=== PATIENT | male | born 1950 | race Caucasian/White ===

== ENCOUNTER 2021-12-08 07:28 | Inpatient (IN) ==
--- NOTE | 2021-12-01 11:54 | Anesthesiology Consultation ---
Date of Service December 01, 2021 Assessment & Plan (1) Encounter for pre-operative examination: - COVID screening: Per assessment on 11/26: No known COVID-19 positive contacts or current COVID-19 related symptoms. Travel screen negative. Patient vaccinated. Surgeon arranging preop COVID testing. Awaiting results. - Cardiology office visit (11/18/21): "Patient is stable from cardiac perspective.. Reviewed echo.. And nuclear stress test completed here recently.. He can proceed with surgery. He is considered an intermediate risk of major cardiac events considering his preexisting comorbidities. He has hx of chronic atrial fibrillation that is rate controlled. Recommend at least 48 hrs pause on anticoagulates prior to surgery." - PCP office visit (11/25/21): Aware of upcoming surgery- "Most recent lab test noted and discussed" Chart Review Chart Review: Acceptable Risk for Surgery and Patient NOT seen in Pre Admission Testing History Surgery Operation Date: 12/08/21 07:45 Proposed Procedures p L3-S1 Decompression Fusion, Spinal Cord Monitoring - Jules Brown, Height/Weight Height: 5 ft 10 in Weight: 131.088 kg Allergies Allergy/AdvReac Type Severity Reaction Status Date / Time Penicillins Allergy Intermediate Hives Verified 11/26/21 10:26 adhesive tape Allergy Mild SENSITIVE Verified 11/26/21 10:26 SKIN Medications Home Medications Medication Instructions Recorded Confirmed Last Taken apixaban 5 mg tablet 5 mg PO BID 11/26/21 11/26/21 Unknown atorvastatin 40 mg tablet 20 mg PO HS 11/26/21 11/26/21 Unknown cholecalciferol (vitamin D3) 50 50 mcg PO QAM 11/26/21 11/26/21 Unknown mcg (2,000 unit) tablet (Vitamin D3) diltiazem HCl 300 mg 300 mg PO QAM 11/26/21 11/26/21 Unknown capsule,extended release 24 hr hydrochlorothiazide 25 mg tablet 25 mg PO QAM 11/26/21 11/26/21 Unknown multivitamin 1 tab PO QA 11/26/21 11/26/21 Unknown omeprazole 20 mg tablet,delayed 20 mg PO QAM 11/26/21 11/26/21 Unknown release sertraline 100 mg tablet 200 mg PO QAM 11/26/21 11/26/21 Unknown spironolactone 25 mg tablet 25 mg PO QAM 11/26/21 11/26/21 Unknown terazosin 5 mg capsule 5 mg PO HS 11/26/21 11/26/21 Unknown Past Medical History Medical History (Updated 12/01/21 @ 11:48 by Esmer Landa) Arthritis Atrial fibrillation REASON FOR ELIQUIS Degenerative disc disease Diabetes mellitus, type 2 DIET CONTROLLED Hearing deficit Hx of bladder cancer SURGERY Hyperlipidemia Hypertension Morbid obesity Post traumatic stress disorder Sleep apnea CPAP Past Family History Family History Mother Family history of diabetes mellitus Other No family history of adverse response to anesthesia Past Surgical History Surgical History H/O detached retina repair RT H/O gastric bypass 2002 H/O shoulder surgery RT History of bladder surgery BLADDER TUMOR REMOVED History of cholecystectomy History of colonoscopy History of cystoscopy MULTIPLE History of ear surgery INNER EAR DRUM REPAIR RT/LEFT (TITANIUM IN PLACE) History of esophagogastroduodenoscopy (EGD) History of tonsillectomy and adenoidectomy History of total hip arthroplasty RT History of total knee replacement RT/LEFT [place] teeth removed Social History Smoking Status: Former smoker tobacco type: cigarettes Do You Dip or Chew Tobacco: No Smoking End Date: 40 YEARS AGO Hx Alcohol Use: Yes Alcohol type: wine alcohol intake frequency: a few times a week substance use type: does not use Lab Results Anesthesia Preop Results Results Anesthesia Widget: WBC 8.07 K/uL (4.8-10.8) 10/26/21 Hgb 12.9 g/dL (14.0-18.0) L 10/26/21 Hct 38.2 % (42-52) L 10/26/21 Plt 195 K/uL (130-400) 10/26/21 Na 139 mmol/L (136-145) 10/26/21 K 4.0 mmol/L (3.5-5.1) 10/26/21 Cl 104 mmol/L (98-107) 10/26/21 CO2 26 mmol/L (21-32) 10/26/21 BUN 23 mg/dl (6-23) 10/26/21 Creat 1.02 mg/dl (0.6-1.4) 10/26/21 Glucose Level 236 mg/dl (70-99(Fasting)) H 10/26/21 PT 12.1 Seconds (9.0-12.0) H 10/26/21 PTT 30.5 Seconds (21.0-31.0) 10/26/21 INR 1.1 (0.9-1.1) 10/26/21 Urine Color Yellow 10/26/21 Urine Appearance Clear (Clear) 10/26/21 Urine pH 7.0 (4.5-7.5) 10/26/21 Urine Specific [place] 1.015 (1.000-1.030) 10/26/21 Urine Protein Negative (Negative) 10/26/21 Urine Glucose (UA) Negative (Negative) 10/26/21 Urine Ketones Negative (Negative) 10/26/21 Urine Blood Negative (Negative) 10/26/21 Urine Nitrite Negative (Negative) 10/26/21 Urine Bilirubin Negative (Negative) 10/26/21 Urine Urobilinogen Negative (Negative) 10/26/21 Urine Leukocyte Esterase Negative (Negative) 10/26/21 Testing Electrocardiogram Date: 10/26/21 A. fib at [address] abnormality. Chest X-Ray Date: 10/26/21 Frontal and lateral radiographs of the chest demonstrate the heart size to be at the upper limits of normal to mildly enlarged. The lungs are clear of alveolar opacities. There is no evidence for effusion bilaterally. There is no evidence for vascular congestion. There is no acute osseous pathology. IMPRESSION: No acute cardiopulmonary disease. Echocardiogram Date: 09/22/21 Mild concentric LVH. Sigmoid septum (basal septal hypertrophy most common with the elderly) noted. There is no obvious LVOT obstruction visualized. EF 55 to 60%. No regional wall motion abnormality. Severe LAD. Mild to moderate RAD. Mildly thickened mitral valve leaflets. Mild to moderate mitral annular calcification. Moderate MR. Mild to moderate TR. Moderately dilated IVC with minimal collapse with respiration. Mild to moderate pulmonary hypertension with RVSP of 43 mmHg. Stress Test Date: 08/12/21 Type: exercise Stress EKG negative. 67% MPHR. Attempts to obtain nuclear portion of stress test unsuccessful but per cardio note 11/18/21: "Last stress test (08/12/2021): Nuclear stress test was negative for stress-induced ischemia or prior myocardial infarction."
[~2021-12-08 07:28] MED LIST: ACETAMINOPHEN 500 MG TAB PO SCH; CLINDAMYCIN/D5W 600 MG/54 ML BAG IV SCH; CeleBREX 200 MG CAP PO SCH; GABAPENTIN 300 MG CAP PO SCH; LR 15ML/HR IV SCH
[2021-12-08] MEDS ORDERED: fentaNYL citrate 100 MCG/2 ML VIAL ONE (08:14)
[2021-12-08] MEDS ORDERED: ALBUMIN HUMAN 5% 12.5 GM/250 ML VIAL IV ONE (08:27)
[2021-12-08] MEDS ORDERED: ATROPINE SULFATE 0.1 MG/ML 10ML SYR IV PRN (08:27)
[2021-12-08] MEDS ORDERED: ONDANSETRON INJ 2 MG/ML 2 ML VIAL IV PRN ×2 (08:27→15:03)
[2021-12-08] MEDS ORDERED: ePHEDrine sulfate 50 MG/ML AMP IV PRN (08:27)
[2021-12-08] MEDS ORDERED: HYDROmorphone INJ 1 MG/ML SYRINGE IV PRN ×2 (08:27→15:03)
--- NOTE | 2021-12-08 08:58 | History & Physical Bridge Note ---
Date of Service December 08, 2021 History & Physical Bridge Note I have examined the patient, reviewed the History & Physical and in the interval since the performance of the History & Physical I have noted the following changes of clinical significance: no changes noted
--- NOTE | 2021-12-08 08:59 | History & Physical Report ---
Date of Service December 08, 2021 Assessment & Plan (1) Neurogenic claudication due to lumbar spinal stenosis: Plan: L3-S1 decompression and fusion History of Present Illness Chief Complaint: Back and bilateral leg pain Primary Care Provider: NO PCP This is a 71-year-old male that presents with chronic persistent back and leg symptoms after failing course of nonoperative care is here for surgical invention. Allergies Allergy/AdvReac Type Severity Reaction Status Date / Time Penicillins Allergy Intermediate Hives Verified 12/08/21 08:10 adhesive tape Allergy Mild SENSITIVE Verified 12/08/21 08:10 SKIN Home Medications Medication Instructions Recorded Confirmed Type apixaban 5 mg tablet (Eliquis) 5 mg PO BID 11/26/21 12/08/21 History atorvastatin 40 mg tablet (Lipitor) 20 mg PO HS 11/26/21 12/08/21 History cholecalciferol (vitamin D3) 50 50 mcg PO QAM 11/26/21 12/08/21 History mcg (2,000 unit) tablet (Vitamin D3) diltiazem HCl 300 mg 300 mg PO QAM 11/26/21 12/08/21 History capsule,extended release 24 hr (Cardizem CD) hydrochlorothiazide 25 mg tablet 25 mg PO QAM 11/26/21 12/08/21 History multivitamin 1 tab PO QAM 11/26/21 12/08/21 History omeprazole 20 mg tablet,delayed 20 mg PO QAM 11/26/21 12/08/21 History release sertraline 100 mg tablet (Zoloft) 200 mg PO QAM 11/26/21 12/08/21 History spironolactone 25 mg tablet 25 mg PO QAM 11/26/21 12/08/21 History (Aldactone) terazosin 5 mg capsule 5 mg PO HS 11/26/21 12/08/21 History Past Med/Surg History Medical History (Updated 12/08/21 @ 08:59 by Jules Brown DO) Arthritis Atrial fibrillation REASON FOR ELIQUIS Degenerative disc disease Diabetes mellitus, type 2 DIET CONTROLLED Hearing deficit Hx of bladder cancer SURGERY Hyperlipidemia Hypertension Morbid obesity Post traumatic stress disorder Sleep apnea CPAP Surgical History H/O detached retina repair RT H/O gastric bypass 2002 H/O shoulder surgery RT History of bladder surgery BLADDER TUMOR REMOVED History of cholecystectomy History of colonoscopy History of cystoscopy MULTIPLE History of ear surgery INNER EAR DRUM REPAIR RT/LEFT (TITANIUM IN PLACE) History of esophagogastroduodenoscopy (EGD) History of tonsillectomy and adenoidectomy History of total hip arthroplasty RT History of total knee replacement RT/LEFT [place] teeth removed Family History Mother Family history of diabetes mellitus Other No family history of adverse response to anesthesia Social History Smoking Status: Former smoker Smoking End Date: 40 YEARS AGO; Second Hand Exposure: Yes ( A CHILD); Do You Dip or Chew Tobacco: No; Hx Alcohol Use: Yes Alcohol type: wine Preferred Language: Marshallese 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
[2021-12-08] MEDS ORDERED: BUPIVACAINE 0.5 % 5 MG/1 ML MPF 30ML VIAL ONE (09:23)
[2021-12-08] MEDS ORDERED: EPINEPHrine INJ 1 MG/ML AMP ONE (09:23)
[2021-12-08] MEDS ORDERED: ceFAZolin 330 MG/ML 1 GM VIAL ONE (09:24)
[2021-12-08] MEDS ORDERED: HYDROmorphone INJ 2 MG/ML SYR/VIAL ONE (09:49)
[2021-12-08] MEDS ORDERED: NEOSTIGMINE METHYLSULFATE 1 MG/ML 10ML VIAL ONE (09:52)
[2021-12-08] MEDS ORDERED: LARYING-O-JET KIT (LTA) ONE (09:52)
[2021-12-08] MEDS ORDERED: ePHEDrine sulfate 50 MG/ML SYR ONE (09:52)
[2021-12-08] MEDS ORDERED: LIDOCAINE 2% 2 ML VIAL/AMP(20MG/ML) INFIL ONE (09:52)
[2021-12-08] MEDS ORDERED: ONDANSETRON INJ 2 MG/ML 2 ML VIAL ONE (09:52)
[2021-12-08] MEDS ORDERED: ROCURONIUM BROMIDE 10 MG/ML 5 ML VIAL IV ONE (09:52)
[2021-12-08] MEDS ORDERED: DEXAMETHASONE SOD INJ 4 MG/ML VIAL ONE (09:52)
[2021-12-08] MEDS ORDERED: GLYCOPYRROLATE 0.2 MG/ML VIAL ONE (09:52)
[2021-12-08] MEDS ORDERED: PHENYLEPHRINE 100MCG/ML 5ML SYR ONE (09:52)
[2021-12-08] MEDS ORDERED: PROPOFOL IV EMULSION 10 MG/ML 20 ML VIAL IV ONE (09:52)
[2021-12-08] MEDS ORDERED: FLOSEAL HEMOSTATIC MATRIX 10ML TOP ONE (10:30)
[2021-12-08] MEDS ORDERED: PHENYLEPHRINE HCL 10 MG/ML VIAL ONE (12:20)
[2021-12-08 12:31] LABS: iSTAT Arterial Blood Gas HCO3 24 meg/L (19-24); iSTAT Arterial Blood Gas pCO2 49 mmHg (35-46); iSTAT Arterial Blood Gas pO2 41 mmHg (80-95); iSTAT Carbon Dioxide 26 mmol/L (24-31); iSTAT Hematocrit 35 % (42-52); iSTAT Hemoglobin 11.9 g/dl (14.0-18.0); iSTAT Potassium 3.8 mmol/L (3.3-5.0); iSTAT Sodium 138 mmol/L (135-144)
[2021-12-08 12:32] LABS: Hemoglobin 12.2 g/dL (14.0-18.0)
--- NOTE | 2021-12-08 12:59 | Operative Report ---
Post Operative Report Pre & Post Diagnosis Operation Date: 12/08/21 09:15 Pre-Op Diagnosis: Spinal Stenosis, Lumbar Region Post-Op Diagnosis: Spinal Stenosis, Lumbar Region I identified the patient and participated in the time-out.: Yes Procedure Operation Date: 12/08/21 09:15 Actual Procedures #1 lumbar decompression with bilateral medial facetectomies and foraminotomies L2-L3, L3-L4, L4-5 and L5-S1. #2 posterior spinal fusion L3-S1. #3 placement posterior segmental instrumentation L3-S1. #4 interbody fusion L3-L4, L4-5 and L5-S1. #5 placement of Spira cage 12 x 26 mm at L3-L4, 13 x 26 mm at L4-5 and 14 x 26 mm at L5-S1. #6 placement locally harvested morselized autograft in the posterior gutters. #7 placement of infuse collagen sponge bone marrow master graft in the posterior gutters and I factor and interbody space. Surgeon Jules Brown, DO Clinical Staff Educator Lyudmila Borjas Estimated Blood Loss 1,700 Findings See Below The patient is 5 foot 10 inches tall weighing over 132 kg with a BMI in excess of 41. Patient's body habitus and an EBL of greater than 1700 cc created significant technical difficulty requiring her deepest retractors longus instruments in order to perform his procedure. This had well over 50% increased operative time. Specimens None Indications This is a 71-year-old male who presents with above-mentioned diagnosis of failed course of nonoperative care is here for the above-mentioned procedure. Description of Procedure Patient was met with identified informed consent obtained. Patient was then taken to the operative suite underwent ablation placed in a prone position on the Tomer table on top of the Raymundo frame. All bony prominences well-padded eyes inspected to ensure no external pressure placed upon them. This point the lumbar spine was prepped and draped in normal sterile fashion. Sharp dissection with the assistance of Bovie cartilage from down to and exposing the lamina and transverse processes of L3-L4-L5 and the sacral ala bilaterally. From caudal to cephalad fashion complete laminectomy of L5 L4 L3 and partial laminectomy of L2 was performed including bilateral medial facetectomies and foraminotomies addressing severe spinal stenosis. Pedicle screws were then placed at L3-L4-L5 and the S1 levels bilaterally with assistance of fluoroscopy and properly sized rebeca placed. Bilateral transforaminal portion left knee discectomy of L5-S1 was performed endplates curetted to subcortical being bone and a 14 x 26 mm Spira cage filled I factor tapped in position. Then proceeded to L for L5 again by way of a transforaminal approach on the left complete discectomy performed endplates curetted to subcortical bleeding bone and again a 13 x 26 mm spiral cage filled with I factor tapped in position. Lastly approached L3-[address] the transforaminal portion left complete discectomy performed endplates good for subcortically bone and a 12 x 26 mm spiral cage with I factor tapped in position. Rods then compressed locked in 5 position bilaterally. The transverse processes of L3 L4-5 and sacral ala burred to subcortical bleeding bone. Infuse collagen sponge bone mass graft locally harvested morselized autograft was placed in the posterior gutters. 15 round OLIVA drain inserted. The incision was then closed with 1 Vicryl the fascia 2-0 Vicryl subcutaneously and 4 Monocryl for final skin closure. Steri-Strip sterile dressings placed. Patient waken taken PACU stable condition. Please note spinal cord monitoring was utilized at the procedure no changes noted. Lastly Lyudmila Borjas was present out the entire surgery involved the patient positioning complex portions of the surgery and final skin closure. I attest to the content of the Intraoperative Record and any orders documented therein. Any exceptions are noted below.
--- NOTE | 2021-12-08 13:15 | Fluoroscopy Report ---
FL lumbar spine 2-3V CLINICAL HISTORY: L3-S1 DFI COMPARISON STUDY: None. FLUOROSCOPY TIME: 44.9 seconds. FLUOROSCOPIC IMAGES: 2 FINDINGS: Fluoroscopy was provided during L3-L4, L4-L5 and L5-S1 discectomies with interbody spacer p lacement. Posterior decompression is noted with bilateral pedicle screws at the L3, L4, L5 and S1 lev els with interconnecting rods. Hardware is intact. IMPRESSION: Fluoroscopy provided during L3-S1 discectomies, posterior decompression and bilateral pe dicle screw fusion. ACT 112: Negative or not required by law. Electronically signed by: Kaiden Lao M.D. 12/08/2021 1:14 PM
[2021-12-08] MEDS: fentaNYL citrate 100 MCG/2 ML VIAL IV PRN ×3 (13:26→13:43)
[2021-12-08 13:47] LABS: Hematocrit (blood only) 33.6 % (42-52); Hemoglobin 11.2 g/dL (14.0-18.0); Mean Corpuscular Hemoglobin 28.2 pg (25-34); Mean Corpuscular Volume 84.6 fL (80-100); Mean Platelet Volume 9.7 fL (7.4-10.4); Platelet Count 184 K/uL (130-400); RDW Coefficient of Variation 14.7 % (11.5-14.5); RDW Standard Deviation 45.8 fL (36.4-46.3); Red Blood Count 3.97 M/uL (4.7-6.1); White Blood Count 11.16 K/uL (4.8-10.8)
[2021-12-08 13:52] LABS: Mean Corpuscular Hgb Conc 33.3 g/dL (32-36)
--- NOTE | 2021-12-08 14:37 | Anesthesiology Progress Note ---
Date of Service December 08, 2021 Anesthesia Post Procedure Vital Signs Vital Signs: Temp Pulse Pulse Resp BP Pulse Ox 12/08/21 13:55 62 12 102/41 L 95 12/08/21 13:45 67 16 104/48 L 98 12/08/21 13:35 62 12 107/39 L 96 12/08/21 13:25 66 14 110/43 L 97 12/08/21 13:16 36.1 C L 72 16 96/47 L 97 12/08/21 08:33 36.8 C 82 18 149/70 H 96 Pain Intensity Lower Back: Pain Intensity: 4 Transfer of Care Handoff Completed per policy Notes Mental Status: alert / awake / arousable and participated in evaluation Patient Amnestic to Procedure: Yes Nausea / Vomiting: adequately controlled Pain: adequately controlled Airway Patency, RR, SpO2: stable & adequate BP & HR: stable & adequate Hydration State: stable & adequate Anesthetic Complications: no major complications apparent and Pt Satisfied with anesthetic care Notes: The patient is doing well with no complaints. He has DAVION and will be on continuous pulse oximetry. The PACU nurse will give report to the floor to ensure the patient's brings is CPAP to the floor.
[2021-12-08] MEDS ORDERED: diphenhydrAMINE Capsule 25 MG CAP PO PRN (15:03)
[2021-12-08] MEDS ORDERED: ACETAMINOPHEN 500 MG TAB PO PRN (15:03)
[2021-12-08] MEDS ORDERED: DO NOT ADMINISTER FLU VACCINE PRN (15:03)
[2021-12-08] MEDS ORDERED: SOD PHOSPHATE/SOD BIPHOSPHATE ENEMA 132 ML BTL PR PRN (15:03)
[2021-12-08] MEDS ORDERED: LORazepam 0.5 MG TAB PO PRN (15:03)
[2021-12-08] MEDS ORDERED: ACETAMINOPHEN 1,000 MG/100 ML VIAL IV PRN (15:03)
[2021-12-08] MEDS ORDERED: LORazepam 2 MG/1 ML VIAL IV PRN (15:03)
[2021-12-08] MEDS ORDERED: NALOXONE HCL 0.4 MG/1 ML VIAL/CARP IV PRN (15:03)
[2021-12-08] MEDS ORDERED: traMADol HCL 50 MG TABLET PO PRN (15:03)
[2021-12-08] MEDS ORDERED: MAGNESIUM HYDROXIDE SUSP 30 ML UDC PO PRN (15:03)
[2021-12-08] MEDS ORDERED: hydrOXYzine HCl 25 MG TAB PO PRN (15:03)
[2021-12-08] MEDS ORDERED: METOCLOPRAMIDE HCL INJ 5 MG/ML 2 ML VIAL IV PRN (15:03)
[2021-12-08] MEDS ORDERED: PROMETHAZINE HCL 12.5 MG in SODIUM CHLORIDE 0.9% 50 ML IV PRN (15:03)
[2021-12-08] MEDS ORDERED: bisacodyL 10 MG SUPP PR PRN (15:03)
[2021-12-08] MEDS ORDERED: FAMOTIDINE 20 MG TAB PO PRN (15:03)
[2021-12-08] MEDS ORDERED: ALUMINUM/MAGNESIUM SUSP 30 ML UDC PO PRN (15:03)
[2021-12-08] MEDS ORDERED: DO NOT ADMINISTER PNEUMOCOCCAL VACCINE PRN (15:03)
[2021-12-08] MEDS ORDERED: ONDANSETRON 4 MG OD TAB PO PRN (15:03)
[2021-12-08] MEDS ORDERED: HYDROmorphone INJ 0.5 MG/0.5 ML SYR IV PRN (15:03)
[2021-12-08] MEDS ORDERED: CARBOHYDRATES FOR HYPOGLYCEMIA PO PRN (15:53)
[2021-12-08] MEDS ORDERED: GLUCOSE 10 TABS/TUBE PO PRN (15:53)
[2021-12-08] MEDS ORDERED: DEXTROSE 50% 50 ML SYRINGE IV PRN (15:53)
[2021-12-08] MEDS ORDERED: GLUCAGON FOR INJ 1 MG VIAL SQ PRN (15:53)
[2021-12-08] MEDS ORDERED: GLUCOSE 40% GEL 15 GM TUBE PO PRN (15:53)
--- NOTE | 2021-12-08 15:55 | Consultation ---
Date of Consultation December 08, 2021 Assessment & Plan (1) Neurogenic claudication due to lumbar spinal stenosis: (2) Atrial fibrillation: (3) Diabetes mellitus, type 2: (4) Hypertension: (5) Sleep apnea: (6) Morbid obesity: This is a 71-year-old male who has a significant past medical history of chronic atrial fibrillation anticoagulated on Eliquis, HTN, HLD, history of bladder cancer currently in remission, diet-controlled T2DM, DAVION on CPAP, PTSD, history of gastric bypass, morbid obesity who presents for elective lumbar procedure by Dr. Brown. Neurogenic claudication due to lumbar spinal stenosis Status post L3-S1 lumbar decompression fusion, POD #[address] Brown EBL 1700 mL; OLIVA drain 95 mL Pain/wound management per orthopedics Activity and therapy as directed by orthopedics Monitor hemoglobin in setting of significant intraoperative blood loss Encourage incentive spirometry, wean oxygen as able, CPAP when sleeping Acute blood loss anemia as cause of post operative anemia Secondary to above surgery Continue to monitor OLIVA drain Postop hemoglobin 11.2 Chronic atrial fibrillation Continue diltiazem with parameters Eliquis on hold until cleared by orthopedics HTN Blood pressure on lower side HCTZ and Aldactone Parameters on diltiazem and terazosin DAVOIN Postoperative hypoxia CPAP at bedtime and with naps Postoperative ABG reveals pH of 7.3 and CO2 of 49 Likely secondary to DAVION, discussed with nurse to place patient on CPAP now until more awake Morbid obesity History of gastric bypass BMI 41.9 Encourage lifestyle diet modifications DVT prophylaxis: SCD/teds Dispo: Per primary PCP: JANICE Tee in [place] FULL CODE Pt was seen and examined in collaboration with Dr. Green, please see addendum Thank you for this consultation. We will follow the patient with you during their hospital stay. You can reach a member of the [facility] Hospitalist Team 07/02 via hospitalist role on tiger text. Supervising Physician Co-Signing Physician Notes Attending addendum: The patient was seen and examined in medical floor He is a status post L3-S1 decompression and fusion Remains stable following surgery and denies any back pain and/or numbness or tingling involving any of the extremities Denies any other symptoms On examination Lying in bed with nasal BiPAP Hemodynamically stable Chest-decreased breath sounds bilaterally otherwise clear Heart-S1, S2 irregular with a 2/6 ESM over precordium Abdomendistended, bowel sound present Extremitiestrace edema bilaterally CNSalert, awake and oriented x3 His preadmission labs, EKG and imaging studies reviewed Status post L3-S1 decompression and fusion with considerable amount of blood loss intraoperatively Has significant other medical conditions, remained stable after surgery Will monitor CBC and PRP Agree with assessment and plan as outlined above by Lay Green History of Present Illness Requesting Physician: Dr. Brown Reason for Consultation: Postop medical management Attending Physician: Jules Brown, History of Present Illness This is a 71-year-old male who has a significant past medical history of chronic atrial fibrillation anticoagulated on Eliquis, HTN, HLD, history of bladder cancer currently in remission, diet-controlled T2DM, DAVION on CPAP, PTSD, history of gastric bypass, morbid obesity who presents for elective lumbar procedure by Dr. Brown. He underwent L3 S1 lumbar decompression fusion. He did have significant blood loss of 1700 mL. He otherwise tolerated the procedure well. Postoperatively his hemoglobin was 11.2 and ABG revealed pH of 7.3 and CO2 of 49. Upon my evaluation patient was sleeping was hypoxic satting in the 80s. Oxygen was increased from 1 L to 3 L and he was satting 95%. He did not have a CPAP on at the time. His is at bedside. Currently he is very drowsy from the procedure does complain of lumbar discomfort but denies any radicular symptoms, numbness or tingling. He denies fever, chills, sweats, lightheadedness, dizziness, chest pain, shortness of breath, cough, nausea, vomiting, abdominal pain. He does have an appetite and is requesting a meal. In regards to patient's chronic atrial fibrillation he is anticoagulated on Eliquis although this has recently been on hold due to procedure. He does have history of diet-controlled T2DM. at bedside is unsure of his recent A1c. He did bring his home CPAP. Patient follows with [facility] in [place]. Patient did have an echocardiogram on 09/22/2021 which revealed severely dilated left atrium, EF 55 to 60%, no regional wall motion abnormalities, aortic valve sclerosis noted, moderate mitral regurg, moderate tricuspid regurg and trace pulmonic regurg. He also underwent exercise stress test on 08/12/2021 which was negative for inducible ischemia. Allergies Allergy/AdvReac Type Severity Reaction Status Date / Time Penicillins Allergy Intermediate Hives Verified 12/08/21 08:10 adhesive tape Allergy Mild SENSITIVE Verified 12/08/21 08:10 SKIN Home Medications Medication Instructions Recorded Confirmed Type apixaban 5 mg tablet (Eliquis) 5 mg PO BID 11/26/21 12/08/21 History atorvastatin 40 mg tablet (Lipitor) 20 mg PO HS 11/26/21 12/08/21 History cholecalciferol (vitamin D3) 50 50 mcg PO QAM 11/26/21 12/08/21 History mcg (2,000 unit) tablet (Vitamin D3) diltiazem HCl 300 mg 300 mg PO QAM 11/26/21 12/08/21 History capsule,extended release 24 hr (Cardizem CD) hydrochlorothiazide 25 mg tablet 25 mg PO QAM 11/26/21 12/08/21 History multivitamin 1 tab PO QAM 11/26/21 12/08/21 History omeprazole 20 mg tablet,delayed 20 mg PO QAM 11/26/21 12/08/21 History release sertraline 100 mg tablet (Zoloft) 200 mg PO QAM 11/26/21 12/08/21 History spironolactone 25 mg tablet 25 mg PO QAM 11/26/21 12/08/21 History (Aldactone) terazosin 5 mg capsule 5 mg PO HS 11/26/21 12/08/21 History Patient History Medical History (Updated 12/08/21 @ 15:59 by Lay Umanzor PA-C) Arthritis Atrial fibrillation REASON FOR ELIQUIS Degenerative disc disease Diabetes mellitus, type 2 DIET CONTROLLED Hearing deficit Hx of bladder cancer SURGERY Hyperlipidemia Hypertension Morbid obesity Post traumatic stress disorder Sleep apnea CPAP Surgical History H/O detached retina repair RT H/O gastric bypass 2002 H/O shoulder surgery RT History of bladder surgery BLADDER TUMOR REMOVED History of cholecystectomy History of colonoscopy History of cystoscopy MULTIPLE History of ear surgery INNER EAR DRUM REPAIR RT/LEFT (TITANIUM IN PLACE) History of esophagogastroduodenoscopy (EGD) History of tonsillectomy and adenoidectomy History of total hip arthroplasty RT History of total knee replacement RT/LEFT [place] teeth removed Family History Mother Family history of diabetes mellitus Other No family history of adverse response to anesthesia Social History Smoking Status: Former smoker Smoking End Date: 40 YEARS AGO; Second Hand Exposure: Yes ( A CHILD); Do You Dip or Chew Tobacco: No; Hx Alcohol Use: Yes Alcohol type: wine Preferred Language: Czech Manager Psychology Required: No Beliefs That Will Affect Care: None Current Living Situation: Spouse Feels Safe at Home: Yes Safety Concerns: Feels Safe At This Time Assistive Devices: Cane, CPAP, Glasses and Hearing Aid - Bilateral Review of Systems Review of Systems: All systems reviewed & are unremarkable except as noted in HPI & below Physical Exam Physical Exam: Constitutional: WD/WN, morbidly obese, drowsy but arouses to conversation, vitals as above, NAD, sitting up in bed, pleasant Head: Normocephalic, Atraumatic Eyes: PERRL, conjunctivae normal, anicteric sclerae ENMT: external ear and nose normal, oropharynx normal with dry membranes Neck: trachea midline, no thyromegaly normal visual inspection Respiratory: normal respiratory effort, lungs clear to auscultation, no wheeze, rales, rhonchi. Normal insp/exp effort, no accessory muscle use Cardiovascular: IRR/IRR, 2/6 LEIDA noted RUSB, b/l scds, no edema Vessels: no JVD or carotid bruit Chest: normal inspection of chest Abdomen: normal bowel sounds, soft, nontender, no hepatosplenomegaly Musculoskeletal: no cyanosis or clubbing, AROM x 4, lumbar dressing CDI, OLIVA with serosang drainage Skin: no rashes, warm and dry normal turgor Neurologic: PERRL, EOMI, accommodation nl, no face palsy, no dysarthria CN's II-XI intact bilaterally and moves all extremities Psychiatric: A+Ox3, euthymic affect Lymphatic: no cervical or axillary lymphadenopathy : +[place] with yellow urine Results & Data ([facility]) Vital Signs (Past 12 Hours) Vital Signs Temp Pulse Pulse Resp BP Pulse Ox 12/08/21 15:24 36.5 C 76 22 103/56 L 93 12/08/21 14:45 36.5 C 69 16 101/63 95 12/08/21 13:55 62 12 102/41 L 95 12/08/21 13:45 67 16 104/48 L 98 12/08/21 13:35 62 12 107/39 L 96 12/08/21 13:25 66 14 110/43 L 97 12/08/21 13:16 36.1 C L 72 16 96/47 L 97 12/08/21 08:33 36.8 C 82 18 149/70 H 96 Laboratory Results Short CBC 12/08/21 12/08/21 Range/Units 12:10 13:33 WBC 11.16 H (4.8-10.8) K/uL Hgb 12.2 L 11.2 L (14.0-18.0) g/dL Hct 37.0 L 33.6 L (42-52) % Plt Count 184 (130-400) K/uL Preoperative labs of 10/26/2021 revealed H&H 12.9 and 38.2, platelet 195 WBC 8.07 BUN 23, creatinine 1.02, glucose 236 Diagnostic Findings Lumbar Spine X-Ray 12/08/21 09:15 FL lumbar spine 2-3V CLINICAL HISTORY: L3-S1 DFI COMPARISON STUDY: None. FLUOROSCOPY TIME: 44.9 seconds. FLUOROSCOPIC IMAGES: 2 FINDINGS: Fluoroscopy was provided during L3-L4, L4-L5 and L5-S1 discectomies with interbody spacer placement. Posterior decompression is noted with bilateral pedicle screws at the L3, L4, L5 and S1 levels with interconnecting rods. Hardware is intact. IMPRESSION: Fluoroscopy provided during L3-S1 discectomies, posterior decompression and bilateral pedicle screw fusion. ACT 112: Negative or not required by law. Electronically signed by: Kaiden Lao M.D. 12/08/2021 1:14 PM Medications Administered Current Inpatient Medications Acetaminophen (Acetaminophen 500 Mg Tab) 1,000 mg PO PREOP [place] Stop: 12/08/21 18:00 Last Admin: 12/08/21 08:58 Dose: 1,000 mg Documented by: Acetaminophen (Acetaminophen 500 Mg Tab) 1,000 mg PO Q8H PRN PRN Reason: MILD Pain Scale 1,2,3 & Pre PT Stop: 01/07/22 15:02 Al Hydrox/Mg Hydrox/Simethicone (Aluminum/Magnesium Susp 30 Ml Udc) 30 ml PO Q6H PRN PRN Reason: Dyspepsia Stop: 01/07/22 15:02 Atorvastatin Calcium (Atorvastatin 20 Mg Tab) 20 mg PO HS [place] Stop: 01/07/22 20:59 Atropine Sulfate (Atropine Sulfate 0.1 Mg/Ml 10ml Syr) 0.5 mg IV Q1M PRN PRN Reason: PACU Use-HR<40 &/or Bradycardi Stop: 12/08/21 16:27 Bisacodyl (Bisacodyl 10 Mg Supp) 10 mg MO DAILY PRN PRN Reason: Constipation Stop: 01/07/22 15:02 Celecoxib (Celebrex 200 Mg Cap) 200 mg PO PREOP [place] Stop: 12/08/21 18:00 Last Admin: 12/08/21 08:58 Dose: 200 mg Documented by: Diltiazem HCl (Diltiazem Hcl 300 Mg Capcr) 300 mg PO QAM [facility] Stop: 01/08/22 08:59 Diphenhydramine HCl (Diphenhydramine Capsule 25 Mg Cap) 25 mg PO Q6H PRN PRN Reason: Allergic Rhinitis/Insomnia Stop: 01/07/22 15:02 Ephedrine Sulfate (Ephedrine Sulfate 50 Mg/Ml Amp) 5 mg IV Q5M PRN PRN Reason: PACU Use Only-SBP<90 mmHg Stop: 12/08/21 16:27 Famotidine (Famotidine 20 Mg Tab) 20 mg PO Q12H PRN PRN Reason: Dyspepsia Stop: 01/07/22 15:02 Fentanyl Citrate (Fentanyl Citrate 100 Mcg/2 Ml Vial) 25 mcg IV Q5M PRN PRN Reason: PACU Use Only-Pain Stop: 12/08/21 16:27 Last Admin: 12/08/21 13:43 Dose: 25 mcg Documented by: Gabapentin (Gabapentin 300 Mg Cap) 300 mg PO PREOP [place] Stop: 12/08/21 18:00 Last Admin: 12/08/21 08:59 Dose: 300 mg Documented by: Hydrochlorothiazide (Hydrochlorothiazide 25 Mg Tab) 25 mg PO QAM [place] Stop: 01/08/22 08:59 Hydromorphone HCl (Hydromorphone Inj 1 Mg/Ml Syringe) 0.25 mg IV Q5M PRN PRN Reason: PACU Use Only-Pain Stop: 12/08/21 16:27 Hydromorphone HCl (Hydromorphone Inj 0.5 Mg/0.5 Ml Syr) 0.5 mg IV Q3H PRN PRN Reason: MODERATE Pain (Scale 4,5,6) & Pre PT Stop: 12/22/21 15:02 Hydromorphone HCl (Hydromorphone Inj 1 Mg/Ml Syringe) 1 mg IV Q3H PRN PRN Reason: SEVERE Pain (Scale 7,8,9,10) Stop: 12/22/21 15:02 Hydroxyzine HCl (Hydroxyzine Hcl 25 Mg Tab) 25 mg PO Q8H PRN PRN Reason: Anxiety Stop: 01/07/22 15:02 Clindamycin Phosphate (Cleocin) 600 mg in 54 mls @ 100 mls/hr IV PREOP [place] Stop: 12/09/21 05:59 Last Infusion: 12/08/21 15:17 Dose: Infused Documented by: Lactated Ringer's (Lr) 1,000 mls @ 15 mls/hr IV .Q24H [place] Stop: 12/09/21 05:59 Last Infusion: 12/08/21 09:26 Dose: Infused Documented by: Clindamycin Phosphate 600 mg/ (Dextrose) 54 mls @ 100 mls/hr IV Q8H [place] Sodium Chloride (Nss 1000ml) 1,000 mls @ 150 mls/hr IV .Q6H40M [place] Stop: 01/07/22 15:02 Promethazine HCl 12.5 mg/ (Sodium Chloride) 50.5 mls @ 202 mls/hr IV Q6H PRN PRN Reason: Nausea &/or Vomiting Stop: 01/07/22 15:02 Acetaminophen (Ofirmev) 1,000 mg in 100 mls @ 400 mls/hr IV Q8H PRN PRN Reason: Pain Rating 1-3 & Pre PT Stop: 12/11/21 15:02 Influenza Virus Vaccine Quadrival (Do Not Administer Flu Vaccine) 1 ea N/A PRN PRN PRN Reason: Notification Stop: 01/07/22 15:02 Lorazepam (Lorazepam 0.5 Mg Tab) 0.5 mg PO Q8H PRN PRN Reason: Sedation/Anxiety Stop: 01/07/22 15:02 Lorazepam (Lorazepam 2 Mg/1 Ml Vial) 0.5 mg IV Q8H PRN PRN Reason: Sedation/Anxiety Stop: 01/07/22 15:02 Magnesium Hydroxide (Magnesium Hydroxide Susp 30 Ml Udc) 30 ml PO Q24H PRN PRN Reason: Constipation Stop: 01/07/22 15:02 Metoclopramide HCl (Metoclopramide Hcl Inj 5 Mg/Ml 2 Ml Vial) 10 mg IV Q6H PRN PRN Reason: Nausea &/or Vomiting Stop: 01/07/22 15:02 Multivitamins (Multivitamin Tab) 1 tab PO QAM [facility] Stop: 01/08/22 08:59 Naloxone HCl (Naloxone Hcl 0.4 Mg/1 Ml Vial/Carp) 0.1 mg IV Q5M PRN PRN Reason: Oversedation/Resp depression Stop: 01/07/22 15:02 Ondansetron HCl (Ondansetron Inj 2 Mg/Ml 2 Ml Vial) 4 mg IV ONCE PRN PRN Reason: PACU Use Only-Nausea/Vomiting Stop: 12/08/21 16:27 Ondansetron HCl (Ondansetron Inj 2 Mg/Ml 2 Ml Vial) 4 mg IV Q6H PRN PRN Reason: Nausea &/or Vomiting Stop: 01/07/22 15:02 Ondansetron HCl (Ondansetron 4 Mg Od Tab) 4 mg PO Q6H PRN PRN Reason: Nausea Stop: 01/07/22 15:02 Oxycodone HCl (Oxycodone Hcl Ir 5 Mg Tab (Immediate Release)) 5 - 10 mg PO Q4H PRN PRN Reason: Pain & Pre PT Stop: 12/22/21 15:02 Pantoprazole Sodium (Pantoprazole 40 Mg Tab) 40 mg PO QAM [facility] Stop: 01/08/22 08:59 Pneumococcal Polyvalent Vaccine (Do Not Administer Pneumococcal Vaccine) 1 ea N/A PRN PRN PRN Reason: Notification Stop: 01/07/22 15:02 Polyethylene Glycol (Polyethylene (Miralax) 17 Gm Pack) 17 gm PO Q6 [place] Stop: 01/08/22 05:59 Senna/Docusate Sodium (Docusate Sodium/Senna 50/8.6mg Tab) 2 tab PO HS [facility] Stop: 01/07/22 20:59 Sertraline HCl (Sertraline Hcl 100 Mg Tablet) 200 mg PO QAM [place] Stop: 01/08/22 08:59 Sodium Biphosphate/Sodium Phosphate (Sod Phosphate/Sod Biphosphate Enema 132 Ml Btl) 132 ml MO ONE PRN PRN Reason: Constipation Stop: 01/07/22 15:02 Spironolactone ([facility] 25 Mg Tab) [facility] [place] [facility]: 01/08/22 08:59 Terazosin HCl (Terazosin Hcl 5 Mg Cap) 5 mg PO HS [facility] Stop: 01/07/22 20:59 Tramadol HCl (Tramadol Hcl 50 Mg Tablet) 50 - 100 mg PO Q4H PRN PRN Reason: Moderate-Severe pain & Pre PT Stop: 01/07/22 15:02 Vitamin D (Cholecalciferol 1,000 Units 25 Mcg Tab) 2,[facility] [place] Stop: 01/08/22 08:59 ECG Rate (beats per minute): 76 Rhythm: atrial fibrillation
[2021-12-08] MEDS: INSULIN ASPART PER UNIT SC SCH ×2 (18:24→20:51)
[2021-12-08] MEDS: SODIUM CHLORIDE 0.9% 1000ML 1,000 ML IV SCH (18:25)
[2021-12-08] MEDS: TERAZOSIN HCL 5 MG CAP PO SCH (20:04)
[2021-12-08] MEDS: CLINDAMYCIN 600 MG in DEXTROSE 5% 50 ML IV SCH (20:18)
[2021-12-08] MEDS: DOCUSATE SODIUM/SENNA 50/8.6MG TAB PO SCH (20:20)
[2021-12-08] MEDS: ATORVASTATIN 20 MG TAB PO SCH (20:20)
[2021-12-08] MEDS: oxyCODONE HCL IR 5 MG TAB (IMMEDIATE RELEASE) PO PRN (20:32)
[2021-12-09] MEDS: SODIUM CHLORIDE 0.9% 1000ML 1,000 ML IV SCH ×4 (01:29→20:16)
[2021-12-09] MEDS: oxyCODONE HCL IR 5 MG TAB (IMMEDIATE RELEASE) PO PRN ×3 (01:33→18:33)
[2021-12-09] MEDS: CLINDAMYCIN 600 MG in DEXTROSE 5% 50 ML IV SCH (02:41)
[2021-12-09] MEDS: POLYETHYLENE (MIRALAX) 17 GM PACK PO SCH ×3 (05:59→18:34)
[2021-12-09 06:13] LABS: Basophils # (auto) 0.02 K/uL (0-0.2); Basophils % (auto) 0.2 %; Eosinophils # (auto) 0.02 K/uL (0-0.5); Eosinophils % (auto) 0.2 %; Hematocrit (blood only) 31.5 % (42-52); Hemoglobin 10.3 g/dL (14.0-18.0); Immature Granulocytes # (auto) 0.03 K/uL (0.00-0.02); Immature Granulocytes % (auto) 0.2 %; Lymphocytes % (auto) 6.3 %; Mean Corpuscular Hgb Conc 32.7 g/dL (32-36); Mean Corpuscular Volume 85.6 fL (80-100); Mean Platelet Volume 9.7 fL (7.4-10.4); Monocytes # (auto) 1.23 K/uL (0.11-0.59); Monocytes % (auto) 9.8 %; Neutrophils # (auto) 10.51 K/uL (1.4-6.5); Neutrophils % (auto) 83.3 %; Platelet Count 199 K/uL (130-400); RDW Standard Deviation 46.9 fL (36.4-46.3); Red Blood Count 3.68 M/uL (4.7-6.1); White Blood Count 12.61 K/uL (4.8-10.8)
[2021-12-09 06:29] LABS: BUN Creatinine Ratio 18.7 (10-20); Calcium 8.2 mg/dl (8.5-10.1); Creatinine Clr Calc Pharmacy 49.5 ml/min; Est GFR (African American) 41.8 ml/min; Potassium 4.3 mmol/L (3.5-5.1)
[2021-12-09 07:28] LABS: Estimated Average Glucose 117 mg/dl; Hemoglobin A1C 5.7 % (4.5-5.6)
[2021-12-09] MEDS ORDERED: SPIRONOLACTONE 25 MG TAB PO SCH (09:00)
[2021-12-09] MEDS ORDERED: hydroCHLOROthiazide 25 MG TAB PO SCH (09:00)
[2021-12-09] MEDS: dilTIAZem HCL 300 MG CAPCR PO SCH (09:27)
[2021-12-09] MEDS: CHOLECALCIFEROL 1,000 UNITS 25 MCG TAB PO SCH (09:27)
[2021-12-09] MEDS: MULTIVITAMIN TAB PO SCH (09:28)
[2021-12-09] MEDS: PANTOprazole 40 MG TAB PO SCH (09:28)
[2021-12-09] MEDS: SERTRALINE HCL 100 MG TABLET PO SCH (09:28)
[2021-12-09] MEDS: INSULIN ASPART PER UNIT SC SCH ×4 (09:32→20:49)
--- NOTE | 2021-12-09 10:22 | Orthopedic Progress Note ---
Date of Service December 09, 2021 Assessment & Plan (1) Neurogenic claudication due to lumbar spinal stenosis: Plan: Patient is postoperative day 1 multilevel lumbar decompression instrumented fusion. He is doing well. We will start physical therapy and ambulation today. Maintain OLIVA drain and dressing. DVT prophylaxis is in the form teds and SCDs. Continue with pain control. Anticipate discharge home Tuesday or Tuesday. Admission and Anticipated Discharge Date Admission Date: December 08, 2021 Subjective Patient is postoperative day 1 multilevel lumbar decompression and instrumented fusion. He is doing well. He had an uneventful evening. Lab values are stable. He has been up to the chair. He will start physical therapy today. Review of Systems Review of Systems: All systems reviewed & are unremarkable except as noted in HPI & below Physical Exam Physical Exam: Alert and oriented x3 No acute distress Lumbar dressing is clean dry and intact with functioning OLIVA drain Calves are soft nontender bilaterally Strength is intact bilateral lower extremities Results & Data ([facility]) Vital Signs (Past 12 Hours) Vital Signs Temp Pulse Resp BP Pulse Ox 12/09/21 07:42 37 C 88 18 115/67 95 12/09/21 02:34 37 C 88 18 113/70 95 12/08/21 23:00 36.8 C 85 18 100/62 94
--- NOTE | 2021-12-09 17:50 | Hospitalist Progress Note ---
Date of Service December 09, 2021 Assessment & Plan (1) Neurogenic claudication due to lumbar spinal stenosis: (2) Atrial fibrillation: (3) Diabetes mellitus, type 2: (4) Hypertension: (5) Sleep apnea: (6) Morbid obesity: Plan: per Dr. Pantoja's notes with addendum: This is a 71-year-old male who has a significant past medical history of chronic atrial fibrillation anticoagulated on Eliquis, HTN, HLD, history of bladder cancer currently in remission, diet-controlled T2DM, DAVION on CPAP, PTSD, history of gastric bypass, morbid obesity who presents for elective lumbar procedure by Dr. Brown. Neurogenic claudication due to lumbar spinal stenosis Status post L3-S1 lumbar decompression fusion, POD #[address] Brown EBL 1700 mL; OLIVA drain 95 mL Hg 11 to 10 asymptomatic monitor Acute blood loss anemia as cause of post operative anemia Secondary to above surgery per above Acute Renal Failure baseline crea 1.0 now 1.8 hold HCTZ, Aldactone; no NSAIDS IV NSS at 125 cc/hr check BMP tomorrow Chronic atrial fibrillation Continue diltiazem with parameters Eliquis on hold until cleared by orthopedics HTN Blood pressure on lower side HCTZ and Aldactone Parameters on diltiazem and terazosin DAVION Postoperative hypoxia CPAP at bedtime and with naps Postoperative ABG reveals pH of 7.3 and CO2 of 49 Likely secondary to DAVION, discussed with nurse to place patient on CPAP now until more awake Morbid obesity History of gastric bypass BMI 41.9 Encourage lifestyle diet modifications DVT prophylaxis: SCD/teds Dispo: Per primary PCP: JANICE Tee in [place] FULL CODE Pt was seen and examined in collaboration with Dr. Green, please see addendum Thank you for this consultation. We will follow the patient with you during their hospital stay. You can reach a member of the [facility] Hospitalist Team 07/02 via hospitalist role on tiger text. Admission and Anticipated Discharge Date Admission Date: December 08, 2021 Subjective ff up for s/p lumbar decompression surgery, etc seen resting in bed, comfortable states he feels ok overall no chest pain, dyspnea, palpitations, dizziness mild to moderate back discomfort otherwise no other symptoms Review of Systems Review of Systems: all noted and negative except for above Physical Exam Physical Exam: General- oriented x 3, not in distress, speaks in sentences with no effort or accessory muscle use Head- atraumatic Eyes- PERRL, EOMI, anicteric ENT- oropharynx clear Neck- supple, no JVD, no adenopathy, no thyromegaly; carotids +2/2, no bruits appreciated Lungs- clear to auscultation bilaterally, no rales/wheezes Heart- normal rate, regular rhythm; no murmur, no gallop, no rub appreciated Abdomen- normal bowel sounds, nondistended, soft, nontender, no masses or hepatosplenomegaly Extremities- no pretibial edema, no calf tenderness; peripheral pulses intact Neuro- alert, oriented x 3; CN 2-12 grossly intact; motor 5/5 bilaterally;sensation 100% on all extremities; no other gross focal neurologic deficits Skin- warm & dry Results & Data Results & Data ([facility]) Vital Signs (Past 12 Hours) Vital Signs Temp Pulse Resp BP Pulse Ox 12/09/21 16:37 36.8 C 85 20 109/61 94 12/09/21 07:42 37 C 88 18 115/67 95 all noted and reviewed including below
[2021-12-09] MEDS: TERAZOSIN HCL 5 MG CAP PO SCH (20:16)
[2021-12-09] MEDS: ATORVASTATIN 20 MG TAB PO SCH (20:16)
[2021-12-09] MEDS: DOCUSATE SODIUM/SENNA 50/8.6MG TAB PO SCH (20:16)
[2021-12-10] MEDS: POLYETHYLENE (MIRALAX) 17 GM PACK PO SCH ×5 (00:39→23:57)
[2021-12-10] MEDS: SODIUM CHLORIDE 0.9% 1000ML 1,000 ML IV SCH ×3 (04:07→21:13)
[2021-12-10] MEDS: oxyCODONE HCL IR 5 MG TAB (IMMEDIATE RELEASE) PO PRN ×2 (08:14→13:13)
[2021-12-10] MEDS: CHOLECALCIFEROL 1,000 UNITS 25 MCG TAB PO SCH (08:16)
[2021-12-10] MEDS: PANTOprazole 40 MG TAB PO SCH (08:18)
[2021-12-10] MEDS: SERTRALINE HCL 100 MG TABLET PO SCH (08:18)
[2021-12-10] MEDS: MULTIVITAMIN TAB PO SCH (08:18)
[2021-12-10] MEDS: dilTIAZem HCL 300 MG CAPCR PO SCH (08:21)
[2021-12-10 09:33] LABS: Basophils # (auto) 0.03 K/uL (0-0.2); Basophils % (auto) 0.3 %; Eosinophils # (auto) 0.53 K/uL (0-0.5); Eosinophils % (auto) 5.5 %; Hematocrit (blood only) 28.1 % (42-52); Hemoglobin 9.3 g/dL (14.0-18.0); Immature Granulocytes # (auto) 0.04 K/uL (0.00-0.02); Immature Granulocytes % (auto) 0.4 %; Lymphocytes # (auto) 0.94 K/uL (1.2-3.4); Lymphocytes % (auto) 9.8 %; Mean Corpuscular Hemoglobin 27.9 pg (25-34); Mean Corpuscular Hgb Conc 33.1 g/dL (32-36); Mean Corpuscular Volume 84.4 fL (80-100); Mean Platelet Volume 9.8 fL (7.4-10.4); Monocytes # (auto) 1.04 K/uL (0.11-0.59); Monocytes % (auto) 10.8 %; Neutrophils # (auto) 7.05 K/uL (1.4-6.5); Neutrophils % (auto) 73.2 %; Platelet Count 166 K/uL (130-400); RDW Coefficient of Variation 15.3 % (11.5-14.5); RDW Standard Deviation 47.4 fL (36.4-46.3); Red Blood Count 3.33 M/uL (4.7-6.1); White Blood Count 9.63 K/uL (4.8-10.8)
[2021-12-10 09:44] LABS: BUN Creatinine Ratio 20.9 (10-20); Calcium 8.3 mg/dl (8.5-10.1); Creatinine Clr Calc Pharmacy 48.2 ml/min; Est GFR (African American) 40.4 ml/min; Est GFR (Non-African American) 34.9 ml/min; Potassium 3.9 mmol/L (3.5-5.1)
--- NOTE | 2021-12-10 09:56 | Orthopedic Progress Note ---
Date of Service December 10, 2021 Assessment & Plan (1) Neurogenic claudication due to lumbar spinal stenosis: Plan: Patient will continue with physical therapy today. DVT prophylaxis is in the form of teds and SCDs. Maintain OLIVA drain. Anticipate discharge home in the next 24 to 48 hours. May require sending patient home with OLIVA drain due to output. Admission and Anticipated Discharge Date Admission Date: December 08, 2021 Jesica Jennings is postoperative day 2 L3-S1 decompression instrumented fusion. He is doing well. Pain is controlled. He has had a bowel movement. Yesterday in physical therapy is ambling roughly 280 feet. OLIVA drain output last shift is 100 cc. he has had an uneventful evening. Review of Systems Review of Systems: All systems reviewed & are unremarkable except as noted in HPI & below Physical Exam Physical Exam: Patient sitting in a chair in no acute distress Alert and oriented x3 Lumbar dressing is clean dry and intact with functioning OLIVA drain Calf soft nontender bilaterally Strength intact bilateral lower extremities Results & Data ([facility]) Vital Signs (Past 12 Hours) Vital Signs Temp Pulse Resp BP Pulse Ox 12/10/21 07:24 36.7 C 93 H 20 101/52 L 93 12/09/21 23:11 36.6 C 85 18 135/60 97
[2021-12-10] MEDS: INSULIN ASPART PER UNIT SC SCH ×4 (11:34→21:10)
[2021-12-10 11:41] LABS: Appearance Urine Clear (Clear); Bilirubin Urine Negative (Negative); Blood Urine Negative (Negative); Color Urine Yellow; Glucose Urine UA Negative (Negative); Ketones Urine Negative (Negative); Leukocyte Esterase Urine Negative (Negative); Nitrite Urine Negative (Negative); Protein Urine Negative (Negative); Specific Gravity Urine 1.008 (1.000-1.030); Urobilinogen Urine Negative (Negative)
--- NOTE | 2021-12-10 17:00 | Hospitalist Progress Note ---
Date of Service December 10, 2021 Assessment & Plan (1) Neurogenic claudication due to lumbar spinal stenosis: (2) Atrial fibrillation: (3) Diabetes mellitus, type 2: (4) Hypertension: (5) Sleep apnea: (6) Morbid obesity: Plan: per Dr. Pantoja's notes with addendum: This is a 71-year-old male who has a significant past medical history of chronic atrial fibrillation anticoagulated on Eliquis, HTN, HLD, history of bladder cancer currently in remission, diet-controlled T2DM, DAVION on CPAP, PTSD, history of gastric bypass, morbid obesity who presents for elective lumbar procedure by Dr. Brown. Neurogenic claudication due to lumbar spinal stenosis Status post L3-S1 lumbar decompression fusion, POD #[address] Brown EBL 1700 mL; OLIVA drain 95 mL Hg 11 to 10 to 9 asymptomatic monitor Acute blood loss anemia as cause of post operative anemia Secondary to above surgery per above Acute Renal Failure baseline crea 1.0 Remains at 1.8 Continue IV NSS at 125 cc/h Urinalysis: Unrevealing Check renal ultrasound hold HCTZ, Aldactone; no NSAIDS Repeat BMP tomorrow Chronic atrial fibrillation Continue diltiazem with parameters Eliquis on hold until cleared by orthopedics HTN Blood pressure on lower side HCTZ and Aldactone Parameters on diltiazem and terazosin DAVION Postoperative hypoxia CPAP at bedtime and with naps Postoperative ABG reveals pH of 7.3 and CO2 of 49 Likely secondary to DAVION, discussed with nurse to place patient on CPAP now until more awake Resolved Morbid obesity History of gastric bypass BMI 41.9 Encourage lifestyle diet modifications DVT prophylaxis: SCD/teds Dispo: Per primary PCP: JANICE Tee in [place] FULL CODE Pt was seen and examined in collaboration with Dr. Green, please see addendum Thank you for this consultation. We will follow the patient with you during their hospital stay. You can reach a member of the [facility] Hospitalist Team 07/02 via hospitalist role on tiger text. Admission and Anticipated Discharge Date Admission Date: December 08, 2021 Subjective Follow-up status post lumbar spine surgery, etc. Seen resting in bed, at the bedside visiting In good spirits, comfortable States he feels fine overall Minimal back pain Denies problems urination No abdominal pain, fevers or chills, flank pain, back pain no chest pain, dyspnea, palpitations, dizziness No other symptoms Review of Systems Review of Systems: all noted and negative except for above Physical Exam Physical Exam: General- oriented x 3, not in distress, speaks in sentences with no effort or accessory muscle use Eyes- anicteric Neck- no JVD Lungs- clear BS Heart- normal rate, regular rhythm; no murmurs Abdomen- normal bowel sounds, nondistended, soft, nontender Extremities- no pretibial edema, no calf tenderness Neuro- alert, oriented x 3; no gross focal neurologic deficits Skin- warm & dry Results & Data Results & Data ([facility]) Vital Signs (Past 12 Hours) Vital Signs Temp Pulse Resp BP Pulse Ox 12/10/21 13:53 36.6 C 98 H 18 144/54 H 91 12/10/21 07:24 36.7 C 93 H 20 101/52 L 93 all noted and reviewed including below
--- NOTE | 2021-12-10 21:03 | Ultrasound Report ---
RENAL ULTRASOUND HISTORY: Acute renal failure, rule out obstruction COMPARISON: None. FINDINGS: Right kidney: 9.3 cm. No hydronephrosis. Normal corticomedullary differentiation and cortical thickne ss. Left kidney: 10.4 cm. No hydronephrosis. Normal corticomedullary differentiation and cortical thickne ss. Bladder: No bladder wall thickening. The bilateral ureteral jets were identified. IMPRESSION: Normal renal ultrasound. ACT 112: Negative or not required by law. Electronically signed by: Theo Newman M.D. 12/10/2021 9:02 PM
[2021-12-10] MEDS: ATORVASTATIN 20 MG TAB PO SCH (21:14)
[2021-12-10] MEDS: DOCUSATE SODIUM/SENNA 50/8.6MG TAB PO SCH (21:14)
[2021-12-10] MEDS: TERAZOSIN HCL 5 MG CAP PO SCH (21:15)
[2021-12-11] MEDS: oxyCODONE HCL IR 5 MG TAB (IMMEDIATE RELEASE) PO PRN ×2 (04:08→08:14)
[2021-12-11] MEDS: POLYETHYLENE (MIRALAX) 17 GM PACK PO SCH ×2 (04:48→12:43)
[2021-12-11] MEDS: SODIUM CHLORIDE 0.9% 1000ML 1,000 ML IV SCH ×2 (06:07→11:22)
[2021-12-11 07:13] LABS: BUN Creatinine Ratio 18.6 (10-20); Calcium 8.6 mg/dl (8.5-10.1); Creatinine Clr Calc Pharmacy 53.9 ml/min; Est GFR (African American) 46.3 ml/min; Potassium 4.2 mmol/L (3.5-5.1)
[2021-12-11] MEDS: PANTOprazole 40 MG TAB PO SCH (08:14)
[2021-12-11] MEDS: SERTRALINE HCL 100 MG TABLET PO SCH (08:15)
[2021-12-11] MEDS: CHOLECALCIFEROL 1,000 UNITS 25 MCG TAB PO SCH (08:15)
[2021-12-11] MEDS: MULTIVITAMIN TAB PO SCH (08:15)
[2021-12-11] MEDS: dilTIAZem HCL 300 MG CAPCR PO SCH (08:15)
[2021-12-11] MEDS: INSULIN ASPART PER UNIT SC SCH ×2 (09:18→12:43)
--- NOTE | 2021-12-11 11:53 | Discharge Summary ---
Date of Service December 11, 2021 Admission HPI Per Admitting Provider This is a 71-year-old male that presents with chronic persistent back and leg symptoms after failing course of nonoperative care is here for surgical invention. Principal Diagnosis Lumbar spinal stenosis with neurogenic claudication Discharge Data Allergies Allergy/AdvReac Type Severity Reaction Status Date / Time Penicillins Allergy Intermediate Hives Verified 12/08/21 08:10 adhesive tape Allergy Mild SENSITIVE Verified 12/08/21 08:10 SKIN Consultations 12/08/21 15:03 Consult Hospitalist Routine Procedures Performed Operation Date: 12/08/21 09:15 Actual Procedures p L3-S1 Decompression Fusion, Spinal Cord Monitoring(Not Applicable) - Jules Brown DO Ordered Studies 12/08/21 09:15 FL lumbar spine 2-3V Routine 12/10/21 16:57 US renal/blad retro comp Routine Hospital Course (1) Neurogenic claudication due to lumbar spinal stenosis: Patient went lumbar decompression fusion Targis well was taken to orthopedic for postoperative or postop and when he was up and ambulating progressed to postop 2 on postop day 3 pain was controlled OLIVA drain decreased appropriate. Excellent strength testing. Socially discharged home. Discharge orders instructions from the chart for further review. Total Time Total Time Spent Total Time Spent (In Minutes): 20 minutes Discharge Plan Discharge Items Patient Disposition: Home - Self-Care Reason For Visit: Spinal Stenosis, Lumbar Region Discharge Diagnosis: Lumbar spinal stenosis with neurogenic claudication Activity: As commented below Non-emergency contact: Primary Care Provider Call non-emergency contact if: you have any medication questions Follow-up/Referrals: PCP,NO [Primary Care Provider] - Diet: Regular Addtl Attending Provider Instructions: ACTIVITY RECOMMENDATIONS: SELF CARE INSTRUCTIONS AFTER THORACIC/LUMBAR FUSIONS 1. You may walk to your tolerance. It is good exercise for your legs and back. Expect some back and intermittent leg aches and pains. 2. You may perform "counter-top" level activities (make a sandwich, jeo with a project, etc.). 3. No bending or lifting of more than 10 pounds or back twisting of any nature (roll like a log when turning in bed). 4. You may ride in a car for 20-30 minutes at a time. No driving until after your first visit with your doctor. 5. Frequent changes of position and restricting sitting to 30 minutes at a time will help limit the amount of back spasms and stiffness you may experience. 6. You may discontinue the use of ambulatory aids (cane, crutches, etc.) once your strength and confidence allow. 7. You may livestock judging coach the shower and let water strike your incision when you arrive home at least once daily. Do not take a tub bath, sit in a hot tub or go into a swimming pool until after your first recheck in the office. SPECIAL CARE INSTRUCTIONS: VERY IMPORTANT TO READ AND REVIEW A. Your surgical incision has been closed with a cosmetic suture under the skin that will dissolve in about 6 weeks. In 14 days, you can use a pair of clean scissors and cut the suture that is left outside of the skin at the ends of your incision. 1. The small skin tapes can be removed 7 days after surgery if they have not fallen off by that point. 2. You may keep the wound open to air as much as possible to promote healing after post-op day number 5 unless told otherwise by your doctor. 3. If you think the wound looks like it is becoming infected (redness or worsening drainage) and/or you are experiencing fever, chill or worsening back pain and muscle spasms, contact the office so that we may evaluate you as soon as possible. B. Complications are uncommon, but please contact us if you have any signs or symptoms of: 1. wound infection (fever higher than 102.5 degrees F, redness, separation of wound, drainage, or increasing pain from the incision) 2. blood clots in legs (pain, swelling, redness and warmth in legs) 3. urinary tract infection (fever higher than 102.5 degrees F, burning upon urination or increased frequency of urination) 4. nerve problems (inability to walk on your toes or heels, numbness, loss of bowel or bladder control) 5. any other symptoms that concern you C. Please call the office at if you have any concerns or questions about your operation or recovery. D. No smoking! Smoking drastically decreases the chance of a solid fusion. E. Do not take any anti-inflammatory medications (Indocin, Advil, Motrin, Aspirin, Naprosyn, etc.) as these may inhibit the chance of a solid fusion. Tylenol is okay to take for pain. MANAGING PAIN AFTER SPINAL SURGERY 1. Narcotic medication is intended for short-term use and will be provided for surgical pain. Surgical pain usually lasts for a period of 4-6 weeks. Narcotic medication includes Percocet, Vicodin, Darvocet, Tylenol #3 or Lortab. 2. Longer-term pain is more appropriately treated with non-narcotic medication such as Tylenol ES. 3. Muscle spasm is not appropriately treated with narcotics. Muscle relaxers such as Soma, Flexeril or Skelaxin can be used along with Tylenol ES. 4. Remember that we all live with some "aches and pains". This is not unusual or uncommon after an injury or as we get older. a. Back pain is expected and may include muscle spasms for 4 to 6 weeks after surgery. The pain should gradually improve. If the pain worsens for no apparent reason, please contact the office. b. Intermittent leg pain may also be experienced and should not be concerned about unless it worsens for no apparent reason. If so, please contact the office. 5. We will provide appropriate medication within the normal guidelines of their prescribed use. We will also be very cautious and aware of potential abuse and extended duration of patients' medication needs. a. Pain medications are for your comfort and to assist with sleep and rest so that the tissue can heal. They are not provided in order to return to normal activity and should not be used through the day. To do so or worsening pain at night can result from ongoing tissue damage and develop ment of tolerance to the prescribed medicine. 6. Please allow 2-3 days to process refills. Prescriptions will not be mailed but must be picked up at the office. FOLLOW UP VISIT: Keep your scheduled follow-up appointment. Any questions, please call the office at . Pending Studies at Discharge: No Stand-Alone Forms: [employer], Smoking Cessation Medications and DC Order Prescriptions: New tramadol 50 mg tablet 50 mg PO Q6H PRN (Reason: pain, moderate) Qty: 30 RF: 0 oxycodone 5 mg tablet 5 mg PO Q6H PRN (Reason: pain, severe) Qty: 30 RF: 0 tramadol 50 mg tablet 50 mg PO Q6H PRN (Reason: pain, moderate) Qty: 30 RF: 0 oxycodone 5 mg tablet 5 mg PO Q6H PRN (Reason: pain, severe) Qty: 30 RF: 0 Continued terazosin 5 mg Capsule 5 mg PO HS RF: 0 atorvastatin [Lipitor] 40 mg Tablet 20 mg PO HS RF: 0 sertraline [Zoloft] 100 mg Tablet 200 mg PO QAM RF: 0 spironolactone [Aldactone] 25 mg Tablet 25 mg PO QAM RF: 0 diltiazem HCl [Cardizem CD] 300 mg Capsule,Extended Release 24hr 300 mg PO QAM RF: 0 hydrochlorothiazide 25 mg Tablet 25 mg PO QAM RF: 0 omeprazole 20 mg Tablet,Delayed Release (Dr/Ec) 20 mg PO QAM RF: 0 Eliquis 5 mg Tablet 5 mg PO BID RF: 0 multivitamin Tablet 1 tab PO QAM RF: 0 cholecalciferol (vitamin D3) [Vitamin D3] 50 mcg (2,000 unit) Tablet 50 mcg PO QAM RF: 0 Discharge Orders: Discharge Order (Routine); Ordered 12/11/21 Ordered By: Jules Brown Admission Data Admit Date/Time: 12/08/21 13:02 Attending Provider: Jules Brown Admit Provider: Jules Brown Primary Care Provider: PCP,NO Other Providers: Jazmin Dyson ; Danny Guzman
--- NOTE | 2021-12-11 18:39 | Communication Note ---
Date of Service: December 11, 2021 Was unable to see patient at bedside Chart review Creatinine improved from 1.8-1.6 Called patient's cell phone Advised to hold hydrochlorothiazide and spironolactone until follow-up with PCP in 1 week with repeat blood work including basic metabolic profile to check renal function Patient verbalized understanding and agreement Will reach out to patient's primary care physician Dr. Hart at [facility] Danny Guzman MD
== END 2021-12-11 13:21 | disposition home or self-care (01) | DRG 454 ==
LOC: ASU 07:28 → 3N 13:02